=== PATIENT | female | born 1995 | race African-American/Black ===

== ENCOUNTER 2022-06-21 18:44 | Emergency (ER) | payer MEDICAID | END 2022-06-21 19:00 | disposition left against medical advice (07) | LOC: ER 18:44 | DX: Z53.21 Procedure and treatment not carried out due to patient leaving prior to being seen by health care provider (principal) ==

== ENCOUNTER 2023-12-19 08:11 | Emergency (ER) | payer MEDICAID ==
[~2023-12-19] VITALS: Ht 157.5 cm; Wt 57.0 kg
[2023-12-19 08:15] VITALS: BP 129/78; RESP 16; TEMP 98.6; O2SAT 100
[2023-12-19 08:18] VITALS: PULSE 99
[2023-12-19 08:41] LABS: BASOPHILS % 0.6 % (0.0-2.0); DIFFERENTIAL COMMENT 0; EOSINOPHILS % 1.4 % (0.0-5.0); HEMATOCRIT. 45.2 % (36.0-48.0); HEMOGLOBIN. 15.1 g/dL (12.0-16.0); LYMPHOCYTES % 34.4 % (20.0-50.0); MEAN CORPUSCULAR HEMOGLOBIN 32.7 pg (28.0-32.0); MEAN CORPUSCULAR HGB CONC 33.4 g/dL (31.0-37.0); MEAN CORPUSCULAR VOLUME 98.1 fL (81.0-99.0); MEAN PLATELET VOLUME 7.4 fl (7.4-10.4); MONOCYTES % 8.1 % (2.0-8.0); NEUTROPHILS % 55.5 % (40.0-76.0); PLATELET 241 x1000/uL (130-400); RED CELL DISTRIBUTION WIDTH 13.5 % (11.6-14.6)
[2023-12-19 08:54] LABS: ALANINE AMINOTRANSFERASE 8 IU/L (10-49); ALBUMIN 4.6 g/dL (3.2-4.8); ASPARTATE AMINOTRANSFERASE 19 IU/L (<34); BILIRUBIN TOTAL 0.8 mg/dL (0.1-1.0); CALCIUM 9.1 mg/dL (8.7-10.4); CARBON DIOXIDE 27 mEq/L (21-32); CHLORIDE 106 mEq/L (98-107); GLUCOSE 91 mg/dL (70-105); POTASSIUM 3.7 mEq/L (3.5-5.1); PROTEIN TOTAL 7.7 g/dL (6.0-8.3); SODIUM 137 mEq/L (136-145); UREA NITROGEN BLOOD 6 mg/dL (9-23)
[2023-12-19] MEDS: ONDANSETRON 4MG ODT PO ONE (11:00)
[2023-12-19 11:09] LABS: HCG SCREEN NEGATIVE
[2023-12-19] MEDS: MAGNESIUM/ALUMINUM HYDROXIDE/SIMETHICONE 30ML UDC PO ONE (11:31)
[2023-12-19] MEDS: FAMOTIDINE 20MG TABLET PO ONE (11:32)
[2023-12-19 11:34] LABS: CLARITY URINE TURBID (CLEAR); COLOR URINE DARK YELLOW (YELLOW); GLUCOSE URINE NEGATIVE (NEGATIVE); KETONES URINE 2+ (NEGATIVE); LEUKOCYTE ESTERASE URINE 2+ (NEGATIVE); NITRITE URINE POSITIVE (NEGATIVE); OCCULT BLOOD URINE NEGATIVE (NEGATIVE); PROTEIN URINE 1+ (NEGATIVE); SPECIFIC GRAVITY URINE 1.025 (1.005-1.030)
[2023-12-19 11:48] LABS: SQUAMOUS EPITHELIAL CELL URINE 3+ /lpf (RARE/1+)
[2023-12-19 11:49] LABS: WBC URINE TNTC /hpf (0-2)
[2023-12-19 11:50] LABS: BACTERIA URINE 4+; RBC URINE 0-2 /hpf (0-2)
[2023-12-19] MEDS ORDERED: CIPR-263 MT (13:46)
== END 2023-12-19 14:32 | disposition home or self-care (01) ==
LOC: ER 08:37
DX: N39.0 Urinary tract infection, site not specified (principal)
CPT/HCPCS: 99284; 74176; 80053; 81003; 81025; 84703; 83690; 85025; 87086; 36415; Q0162